=== PATIENT | male | born 1940 | race Caucasian/White ===

== ENCOUNTER 2016-10-27 20:07 | Inpatient (IN) | payer MEDICARE, OTHER ==
[~2016-10-27] VITALS: Ht 175.3 cm; Wt 80.8 kg
[2016-10-27] MEDS ORDERED: NITROGLYCERIN/D5W PMX 250 ML ONE (20:11)
[2016-10-27] MEDS ORDERED: VERAPAMIL 2.5 MG/ML, 2ML ONE (20:24)
[2016-10-27] MEDS ORDERED: FENTANYL PF 100 MCG/2ML ONE ×2 (20:24→21:05)
[2016-10-27] MEDS ORDERED: MIDAZOLAM 1 MG/ML, 5ML ONE (20:24)
[2016-10-27] MEDS ORDERED: EPTIFIBATIDE 100 ML IV ONE (20:25)
[2016-10-27] MEDS ORDERED: HEPARIN 1,000 UNITS/ML, 10ML ONE (20:25)
[2016-10-27] MEDS ORDERED: LIDOCAINE 2%, 20ML ONE (20:25)
[2016-10-27] MEDS ORDERED: BIVALIRUDIN 250 MG ONE (20:25)
[2016-10-27] MEDS ORDERED: EPTIFIBATIDE 20 MG/10 ML ONE (20:25)
[2016-10-27 20:29] LABS: HEMOGLOBIN 12.9 g/dL (13.7-18.0)
[2016-10-27] MEDS ORDERED: PLEASE ENTER ALLERGIES MC SCH ×2 (20:30)
[2016-10-27] MEDS ORDERED: PLEASE ENTER HEIGHT AND WEIGHT MC SCH (20:30)
[2016-10-27] MEDS ORDERED: SODIUM CHLORIDE 0.9% 1,000ML IVBOLUS ONE (20:30)
[2016-10-27] MEDS ORDERED: ATOR80TA75 PO (20:39)
[2016-10-27] MEDS ORDERED: TAMS-11 PO (20:39)
[2016-10-27 20:42] LABS: BLOOD UREA NITROGEN 25 mg/dL (7-18)
[2016-10-27 20:46] LABS: IS PT STATUS REG ER OR PRE ER? YES
[2016-10-27] MEDS ORDERED: TICAGRELOR 90 MG TABLET ONE (20:50)
[2016-10-27] MEDS ORDERED: LOVA10TA PO (20:55)
[2016-10-27] MEDS: TICAGRELOR 90 MG TABLET PO SCH (21:00)
[2016-10-27] MEDS ORDERED: ADENOSINE 6 MG/2 ML ONE (21:13)
[2016-10-27] MEDS ORDERED: SODIUM CHLORIDE 0.9% 1,000 ML IV SCH (22:30)
[2016-10-27] MEDS ORDERED: EPTIFIBATIDE 100 ML IV SCH ×2 (23:00)
[2016-10-27 23:15] VITALS: BP 127/70
[2016-10-27 23:21] VITALS: BP 127/70
[2016-10-27 23:36] LABS: IS PT STATUS REG ER OR PRE ER? NO
[2016-10-28] MEDS ORDERED: BISACODYL 10 MG SUPP PR PRN
[2016-10-28] MEDS ORDERED: ENALAPRILAT 1.25 MG/ML, 2ML IVPush PRN
[2016-10-28] MEDS ORDERED: ACETAMINOPHEN 325 MG TABLET PO PRN
[2016-10-28] MEDS ORDERED: POLYETHYLENE GLYCOL 17 GM PACKET PO PRN
[2016-10-28] MEDS ORDERED: DOCUSATE 100 MG CAPSULE PO PRN
[2016-10-28] MEDS ORDERED: ONDANSETRON 2MG/ML, 2ML IVP PRN
[2016-10-28] MEDS: ATORVASTATIN 40 MG TABLET PO SCH ×2 (00:23→23:38)
[2016-10-28] MEDS: TAMSULOSIN 0.4 MG CAP.ER.24H PO SCH ×2 (00:23→23:38)
[2016-10-28] MEDS: TICAGRELOR 90 MG TABLET PO SCH ×2 (02:18→23:38)
[2016-10-28 04:00] VITALS: BP 155/70
[2016-10-28 04:48] LABS: HEMOGLOBIN 12.7 g/dL (13.7-18.0)
[2016-10-28] MEDS: ASPIRIN 81 MG TABLET EC PO SCH (05:50)
[2016-10-28 12:32] LABS: IS PT STATUS REG ER OR PRE ER? NO
[2016-10-28] MEDS: MORPHINE SULFATE 4 MG/ML, 1ML IVPush PRN ×2 (13:20→21:04)
[2016-10-28 18:14] LABS: BLOOD UREA NITROGEN 22 mg/dL (7-18)
[2016-10-28 18:31] LABS: IS PT STATUS REG ER OR PRE ER? NO
[2016-10-28] MEDS: OXYcodone IR 5MG TABLET PO PRN ×2 (19:51→23:38)
[2016-10-28 21:00] VITALS: BP 142/73
[2016-10-28] MEDS: CARVEDILOL 6.25 MG TABLET PO SCH (21:04)
[2016-10-28] MEDS: ISOSORBIDE MONONITRATE ER 30 MG TABLET PO SCH (21:05)
[2016-10-28] MEDS ORDERED: DOPAMINE/D5W PMX 250 ML ONE (22:12)
[2016-10-28 22:29] LABS: PATH.CAST-FLAG NOT PRESENT; SPERM-FLAG NOT PRESENT; SRC-FLAG NOT PRESENT; XTAL-FLAG NOT PRESENT; YLC-FLAG NOT PRESENT
[2016-10-29] VITALS (7 sets, daily range): BP systolic 106–133; BP diastolic 66–86
[2016-10-29] MEDS: MORPHINE SULFATE 4 MG/ML, 1ML IVPush PRN (01:18)
[2016-10-29 02:00] LABS: IS PT STATUS REG ER OR PRE ER? NO
[2016-10-29] MEDS: OXYcodone IR 5MG TABLET PO PRN ×4 (04:22→19:51)
[2016-10-29 05:43] LABS: BLOOD UREA NITROGEN 18 mg/dL (7-18)
[2016-10-29] MEDS: CARVEDILOL 6.25 MG TABLET PO SCH ×2 (06:39→17:54)
[2016-10-29] MEDS: ASPIRIN 81 MG TABLET EC PO SCH (06:39)
[2016-10-29 07:21] LABS: IS PT STATUS REG ER OR PRE ER? NO
[2016-10-29] MEDS: LISINOPRIL 5 MG TABLET PO SCH (09:34)
[2016-10-29] MEDS: ISOSORBIDE MONONITRATE ER 30 MG TABLET PO SCH (09:34)
[2016-10-29] MEDS: TICAGRELOR 90 MG TABLET PO SCH ×2 (09:34→22:23)
[2016-10-29] MEDS: TAMSULOSIN 0.4 MG CAP.ER.24H PO SCH (22:23)
[2016-10-29] MEDS: ATORVASTATIN 40 MG TABLET PO SCH (22:23)
[2016-10-30] MEDS: OXYcodone IR 5MG TABLET PO PRN (00:01)
[2016-10-30 02:07] VITALS: BP_SYST 74; BP_SYST 77; BP_DIAS 37; BP_DIAS 44
[2016-10-30 02:20] VITALS: BP 83/46
[2016-10-30] MEDS ORDERED: SODIUM CHLORIDE 0.9%, 500ML IVBOLUS ONE (02:30)
[2016-10-30] MEDS ORDERED: NALOXONE 0.4 MG/ML, 1ML ONE (02:59)
[2016-10-30] MEDS ORDERED: NALOXONE 0.4 MG/ML, 1ML IVPush ONE (03:00)
[2016-10-30] MEDS ORDERED: DOPAMINE/D5W PMX 250 ML ONE (03:45)
[2016-10-30] MEDS: DOPAMINE/D5W PMX 250 ML IV PRN ×2 (04:00→11:47)
[2016-10-30] MEDS ORDERED: VERAPAMIL 2.5 MG/ML, 2ML ONE ×2 (05:19→13:50)
[2016-10-30] MEDS ORDERED: MIDAZOLAM 1 MG/ML, 5ML ONE ×3 (05:19→13:50)
[2016-10-30] MEDS ORDERED: TICAGRELOR 90 MG TABLET ONE ×2 (05:19→13:50)
[2016-10-30] MEDS ORDERED: FENTANYL PF 100 MCG/2ML ONE ×2 (05:19→13:50)
[2016-10-30] MEDS ORDERED: NITROGLYCERIN 5 MG/ML, 10ML ONE (05:19)
[2016-10-30] MEDS ORDERED: BIVALIRUDIN 250 MG ONE ×2 (05:20→13:50)
[2016-10-30] MEDS ORDERED: HEPARIN 1,000 UNITS/ML, 10ML ONE ×2 (05:20→13:50)
[2016-10-30] MEDS ORDERED: LIDOCAINE 2%, 20ML ONE ×2 (05:20→13:50)
[2016-10-30] MEDS ORDERED: EPTIFIBATIDE 100 ML IV ONE (05:46)
[2016-10-30] MEDS ORDERED: EPTIFIBATIDE 20 MG/10 ML ONE (05:47)
[2016-10-30] MEDS: CARVEDILOL 6.25 MG TABLET PO SCH ×3 (06:00→22:06)
[2016-10-30] MEDS: ASPIRIN 81 MG TABLET EC PO SCH (06:00)
[2016-10-30] MEDS ORDERED: PROPOFOL 10 MG/ML, 100ML IV ONE (08:00)
[2016-10-30] MEDS ORDERED: ETOMIDATE 40 MG/20 ML ONE (08:00)
[2016-10-30 08:17] LABS: HEMOGLOBIN 10.9 g/dL (13.7-18.0)
[2016-10-30 08:28] LABS: BLOOD UREA NITROGEN 22 mg/dL (7-18)
[2016-10-30 08:33] LABS: DIFF TOTAL CELLS COUNTED 100 CELL DIFF
[2016-10-30 08:47] LABS: IS PT STATUS REG ER OR PRE ER? NO
[2016-10-30 08:58] LABS: VERIFY COUNTS? YES
[2016-10-30] MEDS: LISINOPRIL 5 MG TABLET PO SCH (09:00)
[2016-10-30] MEDS: SODIUM CHLORIDE 0.9% 1,000 ML IV SCH ×2 (09:20→14:46)
[2016-10-30] MEDS: TICAGRELOR 90 MG TABLET PO SCH (11:04)
[2016-10-30] MEDS: ISOSORBIDE MONONITRATE ER 30 MG TABLET PO SCH (11:04)
[2016-10-30] MEDS ORDERED: PHENYLEPHRINE 20 MG in SODIUM CHLORIDE 0.9% 248 ML IV PRN (13:00)
[2016-10-30] MEDS ORDERED: NOREPINEPHRINE 1 MG/ML, 4ML ONE (13:19)
[2016-10-30] MEDS ORDERED: PHARMACY MAY ADJ FOR RENAL FX MC SCH (14:00)
[2016-10-30] MEDS ORDERED: LIDOCAINE-MPF 1%, 2ML ENDO PRN (14:00)
[2016-10-30] MEDS ORDERED: EPINEPHRINE 2 MG in SODIUM CHLORIDE 0.9% 248 ML IV PRN (14:00)
[2016-10-30] MEDS: ALBUTEROL/IPRATROPIUM 2.5MG/0.5MG, 3 ML INLINE SCH ×3 (14:00→21:55)
[2016-10-30 14:11] LABS: ABG COLLECTION SITE ARTERIAL LINE
[2016-10-30] MEDS ORDERED: HEPARIN 25,000 UNITS/500ML PMX 500 ML ONE (14:51)
[2016-10-30] MEDS ORDERED: VECURONIUM 10 MG ONE ×2 (14:57→15:01)
[2016-10-30] MEDS ORDERED: EPINEPHRINE SYRINGE 0.1 MG/ML, 10ML ONE (15:45)
[2016-10-30] MEDS ORDERED: HEPARIN 5,000 UNITS/ML, 1ML IV ONE (16:00)
[2016-10-30] MEDS ORDERED: NOREPINEPHRINE 4 MG in SODIUM CHLORIDE 0.9% 246 ML IV PRN (16:00)
[2016-10-30] MEDS: PANTOPRAZOLE 40 MG IV IVPush SCH (16:47)
[2016-10-30] MEDS: PROPOFOL 100 ML IV PRN (18:46)
[2016-10-30] MEDS: VASOPRESSIN 100 UNIT in SODIUM CHLORIDE 0.9% 495 ML IV PRN (18:47)
[2016-10-30] MEDS ORDERED: NOREPINEPHRINE 8 MG in SODIUM CHLORIDE 0.9% 242 ML IV PRN (19:00)
[2016-10-30] MEDS ORDERED: CLOPIDOGREL 300 MG TABLET PO ONE (19:30)
[2016-10-30] MEDS ORDERED: EPTIFIBATIDE IV ONE ×2 (19:30→19:40)
[2016-10-30] MEDS: PHENYLEPHRINE 40 MG in SODIUM CHLORIDE 0.9% 246 ML IV PRN (20:17)
[2016-10-30] MEDS: EPTIFIBATIDE 100 ML IV PRN (20:32)
[2016-10-30] MEDS: TAMSULOSIN 0.4 MG CAP.ER.24H PO SCH (20:53)
[2016-10-30] MEDS: ATORVASTATIN 40 MG TABLET PO SCH (20:53)
[2016-10-30 21:40] LABS: IS PT STATUS REG ER OR PRE ER? NO
[2016-10-31] MEDS: ALBUTEROL/IPRATROPIUM 2.5MG/0.5MG, 3 ML INLINE SCH ×6 (01:50→22:11)
[2016-10-31] MEDS: PHENYLEPHRINE 40 MG in SODIUM CHLORIDE 0.9% 246 ML IV PRN ×2 (02:09→10:16)
[2016-10-31] MEDS ORDERED: DOPAMINE/D5W PMX 250 ML ONE (02:12)
[2016-10-31] MEDS: PANTOPRAZOLE 40 MG IV IVPush SCH ×2 (02:14→13:50)
[2016-10-31] MEDS: DOPAMINE/D5W PMX 250 ML IV PRN ×3 (02:17→17:53)
[2016-10-31 02:48] LABS: HEMOGLOBIN 9.8 g/dL (13.7-18.0)
[2016-10-31] MEDS: HEPARIN 5,000 UNITS/ML, 1ML IV PRN ×3 (04:13→18:50)
[2016-10-31 05:30] LABS: HEMOGLOBIN 9.9 g/dL (13.7-18.0)
[2016-10-31 05:34] LABS: ABG COLLECTION SITE ARTERIAL LINE
[2016-10-31 05:42] LABS: ASPARTATE AMINO TRANSFERASE 804 U/L (15-37); BLOOD UREA NITROGEN 37 mg/dL (7-18)
[2016-10-31] MEDS: PROPOFOL 100 ML IV PRN ×2 (05:48→12:21)
[2016-10-31] MEDS: SODIUM CHLORIDE 0.9% 1,000 ML IV SCH (05:54)
[2016-10-31] MEDS: ASPIRIN 81 MG TABLET EC PO SCH (05:54)
[2016-10-31 06:01] LABS: IS PT STATUS REG ER OR PRE ER? NO
[2016-10-31 06:38] VITALS: BP 107/48
[2016-10-31] MEDS: ISOSORBIDE MONONITRATE ER 30 MG TABLET PO SCH (08:25)
[2016-10-31] MEDS: LISINOPRIL 5 MG TABLET PO SCH (08:26)
[2016-10-31] MEDS ORDERED: MAGNESIUM SULFATE PMX 2GM/50ML 50 ML IV ONE (08:30)
[2016-10-31] MEDS: ASPIRIN 81 MG TABLET CHEW NG SCH (09:02)
[2016-10-31] MEDS: CLOPIDOGREL 75 MG TABLET PO SCH (09:02)
[2016-10-31] MEDS: SODIUM BICARBONATE 8.4% 150 MEQ in DEXTROSE 5% 1,000 ML IV SCH ×2 (09:03→18:40)
[2016-10-31] MEDS: EPTIFIBATIDE 100 ML IV PRN (10:17)
[2016-10-31] MEDS: HEPARIN 25,000 UNITS/500ML PMX 500 ML IV PRN (15:48)
[2016-10-31] MEDS: CARVEDILOL 6.25 MG TABLET PO SCH (18:00)
[2016-10-31] MEDS ORDERED: DOBUTAMINE/D5W PMX 250 ML ONE (18:19)
[2016-10-31] MEDS: DOBUTAMINE 250 MG in SODIUM CHLORIDE 0.9% 230 ML IV PRN ×2 (18:31→22:42)
[2016-10-31] MEDS: TAMSULOSIN 0.4 MG CAP.ER.24H PO SCH (21:10)
[2016-10-31] MEDS: ATORVASTATIN 40 MG TABLET PO SCH (21:33)
[2016-11-01] MEDS: DOBUTAMINE 250 MG in SODIUM CHLORIDE 0.9% 230 ML IV PRN ×3 (02:00→10:47)
[2016-11-01] MEDS: PANTOPRAZOLE 40 MG IV IVPush SCH ×2 (02:43→14:00)
[2016-11-01] MEDS: HEPARIN 5,000 UNITS/ML, 1ML IV PRN (02:43)
[2016-11-01] MEDS: ALBUTEROL/IPRATROPIUM 2.5MG/0.5MG, 3 ML INLINE SCH ×3 (02:44→10:31)
[2016-11-01 04:38] LABS: ABG COLLECTION SITE ARTERIAL LINE; HEMOGLOBIN 8.6 g/dL (13.7-18.0)
[2016-11-01 04:43] LABS: BLOOD UREA NITROGEN 48 mg/dL (7-18)
[2016-11-01 04:49] VITALS: BP 82/44
[2016-11-01 05:07] LABS: ASPARTATE AMINO TRANSFERASE 3094 U/L (15-37)
[2016-11-01] MEDS: EPTIFIBATIDE 100 ML IV PRN (05:23)
[2016-11-01] MEDS: SODIUM BICARBONATE 8.4% 150 MEQ in DEXTROSE 5% 1,000 ML IV SCH (05:23)
[2016-11-01] MEDS: EPINEPHRINE 4 MG in SODIUM CHLORIDE 0.9% 246 ML IV PRN ×2 (05:24)
[2016-11-01] MEDS: CARVEDILOL 6.25 MG TABLET PO SCH (06:24)
[2016-11-01] MEDS: PROPOFOL 100 ML IV PRN (08:37)
[2016-11-01] MEDS: ISOSORBIDE MONONITRATE ER 30 MG TABLET PO SCH (09:00)
[2016-11-01] MEDS: CLOPIDOGREL 75 MG TABLET PO SCH (09:16)
[2016-11-01] MEDS: ASPIRIN 81 MG TABLET CHEW NG SCH (09:16)
[2016-11-01] MEDS: OXYcodone IR 5MG TABLET PO PRN (09:16)
[2016-11-01] MEDS: INSULIN REGULAR, HUMAN 100 UNIT/ML 3ML VIAL LOW DOSE SS SQ-INSULIN SCH ×2 (09:19→15:00)
[2016-11-01] MEDS: HEPARIN 25,000 UNITS/500ML PMX 500 ML IV PRN (10:47)
[2016-11-01] MEDS ORDERED: POTASSIUM CHLORIDE 40 MEQ in SODIUM CHLORIDE 0.9% 100 ML IV ONE (11:00)
[2016-11-01] MEDS ORDERED: PHENYLEPHRINE 80 MG in SODIUM CHLORIDE 0.9% 242 ML IV PRN (11:30)
[2016-11-01] MEDS ORDERED: EPINEPHRINE 8 MG in SODIUM CHLORIDE 0.9% 242 ML IV PRN (11:30)
[2016-11-01] MEDS ORDERED: NOREPINEPHRINE 16 MG in SODIUM CHLORIDE 0.9% 234 ML IV PRN (11:30)
[2016-11-01] MEDS: VASOPRESSIN 100 UNIT in SODIUM CHLORIDE 0.9% 495 ML IV PRN (13:07)
[2016-11-01] MEDS ORDERED: ATROPINE OPHTH SOLN 1%, 5ML PO PRN (15:00)
[2016-11-01] MEDS ORDERED: morphine SULFATE 10 MG/ML, 1ML IV ONE (15:30)
[2016-11-01] MEDS: LORazepam 2 MG/ML, 1ML IV PRN ×3 (15:34→16:00)
[2016-11-01] MEDS ORDERED: morphine SULFATE 125 MG in SODIUM CHLORIDE 0.9% 237.5 ML IV SCH (15:46)
[2016-11-01] MEDS: MORPHINE SULFATE 4 MG/ML, 1ML IVPush PRN (15:48)
[2016-11-01] MEDS ORDERED: MORPHINE SULFATE 4 MG/ML, 1ML IVPush PRN (16:30)
== END 2016-11-01 19:02 | disposition expired | DRG 270 ==
LOC: EDBD 20:07 → MERGE 20:07 → ED 22:20 → CCU 22:28 → 5SO 10-28 18:58 → CCU 10-30 03:40
PROVIDERS: ADMIT Internal Medicine Interventional Cardiology; ATTEND Internal Medicine Interventional Cardiology
PROC: 027036Z Dilation of Coronary Artery, One Artery with Three Drug-eluting Intraluminal Devices, Percutaneous Approach (ICD-10-PCS; principal; 2016-10-27)
PROC: 02C03ZZ Extirpation of Matter from Coronary Artery, One Artery, Percutaneous Approach (ICD-10-PCS; 2016-10-27)
PROC: B215YZZ Fluoroscopy of Left Heart using Other Contrast (ICD-10-PCS; 2016-10-27)
PROC: B2111ZZ Fluoroscopy of Multiple Coronary Arteries using Low Osmolar Contrast (ICD-10-PCS; 2016-10-27)
PROC: 4A023N7 Measurement of Cardiac Sampling and Pressure, Left Heart, Percutaneous Approach (ICD-10-PCS; 2016-10-27)
PROC: 0T9B70Z Drainage of Bladder with Drainage Device, Via Natural or Artificial Opening (ICD-10-PCS; 2016-10-27)
PROC: 3E033RZ Introduction of Antiarrhythmic into Peripheral Vein, Percutaneous Approach (ICD-10-PCS; 2016-10-27)
PROC: 3E073GC Introduction of Other Therapeutic Substance into Coronary Artery, Percutaneous Approach (ICD-10-PCS; 2016-10-27)
PROC: 5A02210 Assistance with Cardiac Output using Balloon Pump, Continuous (ICD-10-PCS; 2016-10-30)
PROC: 02703DZ Dilation of Coronary Artery, One Artery with Intraluminal Device, Percutaneous Approach (ICD-10-PCS; 2016-10-30)
PROC: 02C03ZZ Extirpation of Matter from Coronary Artery, One Artery, Percutaneous Approach (ICD-10-PCS; 2016-10-30)
PROC: 02703ZZ Dilation of Coronary Artery, One Artery, Percutaneous Approach (ICD-10-PCS; 2016-10-30)
PROC: 4A023N7 Measurement of Cardiac Sampling and Pressure, Left Heart, Percutaneous Approach (ICD-10-PCS; 2016-10-30)
PROC: B2111ZZ Fluoroscopy of Multiple Coronary Arteries using Low Osmolar Contrast (ICD-10-PCS; 2016-10-30)
PROC: 5A1223Z Performance of Cardiac Pacing, Continuous (ICD-10-PCS; 2016-10-30)
PROC: 4A023N7 Measurement of Cardiac Sampling and Pressure, Left Heart, Percutaneous Approach (ICD-10-PCS; 2016-10-30)
PROC: B2111ZZ Fluoroscopy of Multiple Coronary Arteries using Low Osmolar Contrast (ICD-10-PCS; 2016-10-30)
PROC: 5A1945Z Respiratory Ventilation, 24-96 Consecutive Hours (ICD-10-PCS; 2016-10-30)
PROC: 0BH17EZ Insertion of Endotracheal Airway into Trachea, Via Natural or Artificial Opening (ICD-10-PCS; 2016-10-30)
PROC: 02HV33Z Insertion of Infusion Device into Superior Vena Cava, Percutaneous Approach (ICD-10-PCS; 2016-10-30)
PROC: 5A2204Z Restoration of Cardiac Rhythm, Single (ICD-10-PCS; 2016-10-31)
DX: I21.4 Non-ST elevation (NSTEMI) myocardial infarction (principal); J96.00 Acute respiratory failure, unspecified whether with hypoxia or hypercapnia; I50.33 Acute on chronic diastolic (congestive) heart failure; I44.2 Atrioventricular block, complete; E87.2 Acidosis; N17.9 Acute kidney failure, unspecified; T82.867A Thrombosis due to cardiac prosthetic devices, implants and grafts, initial encounter; I49.01 Ventricular fibrillation; R57.0 Cardiogenic shock; E78.5 Hyperlipidemia, unspecified; D64.9 Anemia, unspecified; D72.829 Elevated white blood cell count, unspecified; E83.42 Hypomagnesemia; E83.51 Hypocalcemia; E87.6 Hypokalemia; I07.1 Rheumatic tricuspid insufficiency; I25.10 Atherosclerotic heart disease of native coronary artery without angina pectoris; I25.2 Old myocardial infarction; I25.5 Ischemic cardiomyopathy; K21.9 Gastro-esophageal reflux disease without esophagitis; N14.1 Nephropathy induced by other drugs, medicaments and biological substances; N40.0 Benign prostatic hyperplasia without lower urinary tract symptoms; I10 Essential (primary) hypertension; T50.8X5A Adverse effect of diagnostic agents, initial encounter; Y83.1 Surgical operation with implant of artificial internal device as the cause of abnormal reaction of the patient, or of later complication, without mention of misadventure at the time of the procedure; Z79.899 Other long term (current) drug therapy; Z86.74 Personal history of sudden cardiac arrest; Z87.891 Personal history of nicotine dependence; I11.0 Hypertensive heart disease with heart failure
CPT/HCPCS: 33210; 33967; 36415; 36600; 71010; 76770; 80047; 80048; 80053; 81001; 82040; 82803; 82962; 83036; 83735; 84439; 84443; 84478; 84484; 85014; 85018; 85025; 85520; 87070; 87081; 87205; 93005; 93306; 93308; 93321; 93325; 93454; 93458; 94002; 94003; 94640; 99291; C1725; C1769; C1876; C1894; J0153; J0583; J1265; J1644; J1815; J2250; J2704; J3010; J3480; J3490; J7070; J7620; C1751; C1757; C1874; C1887; C9113; J0171; J1250; J1327; J2060; J2270; J2370; J3475; J7030; J7040; J7050; Q9967